=== PATIENT | male | born 1970 | race Caucasian/White ===

== ENCOUNTER 2024-07-02 16:01 | Emergency (ER) | payer MEDICAID ==
[~2024-07-02] VITALS: Ht 182.9 cm; Wt 93.0 kg
[2024-07-02 21:06] VITALS: BP 16/70; TEMP 98; O2SAT 97
== END 2024-07-02 21:06 | disposition home or self-care (01) ==
LOC: ER 16:01
DX: R51.9 Headache, unspecified (principal); R42 Dizziness and giddiness
CPT/HCPCS: 70450-TC